=== PATIENT | male | born 1960 | race African-American/Black ===

== ENCOUNTER 2022-02-22 13:36 | Emergency (ER) | payer MEDICAID ==
[~2022-02-22] VITALS: Ht 180.3 cm; Wt 91.0 kg
[2022-02-22] MEDS ORDERED: IBUPROFEN 400MG TABLET PO ONE (16:15)
[2022-02-22] MEDS ORDERED: XAR15 MT (17:02)
[2022-02-22 17:25] VITALS: BP 135/75
== END 2022-02-22 17:43 | disposition home or self-care (01) ==
LOC: ER 14:03
DX: I82.502 Chronic embolism and thrombosis of unspecified deep veins of left lower extremity (principal); F17.210 Nicotine dependence, cigarettes, uncomplicated; I10 Essential (primary) hypertension; I25.10 Atherosclerotic heart disease of native coronary artery without angina pectoris; Z95.1 Presence of aortocoronary bypass graft
CPT/HCPCS: 73590; 93971; 99284

== ENCOUNTER 2022-07-08 23:21 | Emergency (ER) | payer MEDICAID, OTHER ==
[~2022-07-08] VITALS: Ht 180.3 cm; Wt 98.0 kg
[~2022-07-08 23:21] MED LIST: XAR15 MT
[2022-07-08 23:26] VITALS: BP 142/72
[2022-07-09] MEDS ORDERED: LIDOCAINE HCL 2% JELLY 5ML TOP ONE (00:30)
[2022-07-09 02:48] LABS: CLARITY URINE TURBID (CLEAR); COLOR URINE ORANGE (YELLOW); KETONES URINE NEGATIVE (NEGATIVE); LEUKOCYTE ESTERASE URINE 3+ (NEGATIVE); NITRITE URINE NEGATIVE (NEGATIVE); OCCULT BLOOD URINE 3+ (NEGATIVE); PH URINE 7.5 (4.5-8.0); PROTEIN URINE 1+ (NEGATIVE); SPECIFIC GRAVITY URINE 1.014 (1.005-1.030)
[2022-07-09] MEDS ORDERED: CEPH500T MT (04:39)
[2022-07-09] MEDS ORDERED: ACET-2708 PO (04:39)
== END 2022-07-09 05:39 | disposition home or self-care (01) ==
LOC: ER 23:38
DX: R33.9 Retention of urine, unspecified (principal); N40.0 Benign prostatic hyperplasia without lower urinary tract symptoms; R31.9 Hematuria, unspecified; I25.10 Atherosclerotic heart disease of native coronary artery without angina pectoris; I10 Essential (primary) hypertension; F14.10 Cocaine abuse, uncomplicated
CPT/HCPCS: 74176; 81003; 87086; 99284; Z7610; A4315

== ENCOUNTER 2022-09-17 03:00 | Emergency (ER) | payer MEDICAID, OTHER ==
[~2022-09-17] VITALS: Ht 180.3 cm; Wt 91.0 kg
[~2022-09-17 03:00] MED LIST changes: +ACET-2708 PO; +CEPH500T MT
[2022-09-17 03:13] VITALS: BP 160/90
[2022-09-17] MEDS ORDERED: IBUP-2029 MT (04:01)
== END 2022-09-17 05:00 | disposition home or self-care (01) ==
LOC: ER 03:00
DX: M25.561 Pain in right knee (principal); M25.562 Pain in left knee; I10 Essential (primary) hypertension; Z98.890 Other specified postprocedural states; F14.10 Cocaine abuse, uncomplicated; Z79.899 Other long term (current) drug therapy
CPT/HCPCS: 99281

== ENCOUNTER 2023-03-06 11:32 | Emergency (ER) | payer MEDICAID, OTHER ==
[~2023-03-06] VITALS: Ht 175.3 cm; Wt 86.0 kg
[~2023-03-06 11:32] MED LIST changes: +IBUP-2029 MT
[2023-03-06 11:39] VITALS: O2SAT 100
[2023-03-06] MEDS ORDERED: AMOX1TAB16 MT (16:06)
[2023-03-06] MEDS ORDERED: CLIN-194 MT (16:06)
[2023-03-06 16:32] VITALS: BP 147/84; PULSE 96; RESP 20; TEMP 98.2
== END 2023-03-06 16:33 | disposition home or self-care (01) ==
LOC: ER 11:32
DX: L02.01 Cutaneous abscess of face (principal); F14.10 Cocaine abuse, uncomplicated; I10 Essential (primary) hypertension
CPT/HCPCS: 99283

== ENCOUNTER 2023-09-07 17:07 | Emergency (ER) | payer MEDICAID, OTHER ==
[~2023-09-07] VITALS: Ht 182.9 cm; Wt 120.0 kg
[~2023-09-07 17:07] MED LIST changes: +AMOX1TAB16 MT; +CLIN-194 MT
[2023-09-07 17:12] VITALS: O2SAT 98
[2023-09-07] MEDS: LIDOCAINE HCL/EPINEPHRINE 1%-EPI 1:100,000 20 ML VIAL INFIL ONE (17:30)
[2023-09-07] MEDS: BACITRACIN ZINC OINT UDPKT TOP ONE (17:30)
[2023-09-07] MEDS: ACETAMINOPHEN 325MG TABLET PO ONE (17:30)
[2023-09-07] MEDS ORDERED: CEPH500T MT (17:33)
[2023-09-07] MEDS ORDERED: SULF1TAB48 MT (17:33)
[2023-09-07] MEDS ORDERED: IBUP-2028 MT (17:33)
[2023-09-07 18:43] VITALS: BP 157/88; PULSE 82; RESP 18; TEMP 98.5
== END 2023-09-07 18:44 | disposition home or self-care (01) ==
LOC: ER 17:07
DX: L02.01 Cutaneous abscess of face (principal); I10 Essential (primary) hypertension; F14.90 Cocaine use, unspecified, uncomplicated; Z98.890 Other specified postprocedural states
CPT/HCPCS: 10060; 99283; J3490; Z7610 ×2

== ENCOUNTER 2024-01-22 00:50 | Emergency (ER) | payer MEDICAID ==
[~2024-01-22] VITALS: Ht 180.3 cm; Wt 91.0 kg
[~2024-01-22 00:50] MED LIST changes: +IBUP-2028 MT; +SULF1TAB48 MT
[2024-01-22 01:07] VITALS: BP 148/95; PULSE 91; RESP 18; TEMP 98.5; O2SAT 98
== END 2024-01-22 04:07 | disposition left against medical advice (07) ==
LOC: ER 00:50
DX: R60.0 Localized edema (principal); M79.605 Pain in left leg; I10 Essential (primary) hypertension; Z79.899 Other long term (current) drug therapy; F14.10 Cocaine abuse, uncomplicated; Z00.00 Encounter for general adult medical examination without abnormal findings
CPT/HCPCS: 99281

== ENCOUNTER 2024-10-27 09:32 | Emergency (ER) | payer MEDICAID ==
[~2024-10-27] VITALS: Ht 180.3 cm; Wt 91.0 kg
[~2024-10-27 09:32] MED LIST changes: -ACET-2708 PO; -AMOX1TAB16 MT; -CEPH500T MT; +CIPR-263 MT; -CLIN-194 MT; +COR3 PO; +FINA-37 MT; -IBUP-2028 MT; -IBUP-2029 MT; -SULF1TAB48 MT; +TAMS-54 MT; -XAR15 MT
[2024-10-27 09:38] VITALS: O2SAT 99
[2024-10-27 09:54] VITALS: BP 152/90; PULSE 83; RESP 14; TEMP 36.9; O2SAT 100
== END 2024-10-27 16:30 | disposition home or self-care (01) ==
LOC: ER 09:32
DX: Z46.6 Encounter for fitting and adjustment of urinary device (principal); I10 Essential (primary) hypertension; Z95.1 Presence of aortocoronary bypass graft; Z79.899 Other long term (current) drug therapy
CPT/HCPCS: 51702; 99284